=== PATIENT | female | born 1950 | race Caucasian/White ===

== ENCOUNTER → 2023-04-13 15:21 | Outpatient (REF) | payer MEDICARE, SELFPAY | LOC: RAD 15:21 | PROVIDERS: ATTENDING PHYSICIAN Obstetrics & Gynecology; FAMILY PHYSICIAN Family Medicine | DX: D25.9 Leiomyoma of uterus, unspecified (principal) | CPT/HCPCS: 76830; 76856 ==

== ENCOUNTER → 2024-04-04 13:41 | Outpatient (REF) | payer MEDICARE, SELFPAY | LOC: WDC 13:41 | PROVIDERS: ATTENDING PHYSICIAN Obstetrics & Gynecology; FAMILY PHYSICIAN Family Medicine | DX: Z12.31 Encounter for screening mammogram for malignant neoplasm of breast (principal) | CPT/HCPCS: 77063; 77067 ==

== ENCOUNTER → 2025-04-06 13:42 | Outpatient (REF) | payer MEDICARE, SELFPAY | LOC: WDC 13:42 | PROVIDERS: ATTENDING PHYSICIAN Obstetrics & Gynecology; FAMILY PHYSICIAN Chiropractor | DX: Z12.31 Encounter for screening mammogram for malignant neoplasm of breast (principal) | CPT/HCPCS: 77063; 77067 ==